=== PATIENT | female | born 1980 | race Two or more races ===

== ENCOUNTER → 2024-11-26 | Outpatient (CLI) | payer OTHER | END | disposition home or self-care (01) | LOC: LAB 12:38 | DX: N39.0 Urinary tract infection, site not specified (principal) | CPT/HCPCS: 87086; 87088; 87186 ==

== ENCOUNTER 2025-01-21 12:44 | Emergency (ER) | payer BC, OTHER ==
[~2025-01-21] VITALS: Ht 162.6 cm; Wt 70.1 kg
--- NOTE | 2025-01-21 13:25 | ED.PDOC ---
History of Present Illness HPI Comments 44 y/o F presents with c/c of hypertension. Patient endorses on her blood pressure being elevated all day, today, and having sudden, unprovoked, and atraumatic onset of headache and dizziness for the past 2x hours. Last at-home blood pressure in the 170's/100's prior to ED arrival. She comments on no previous history of hypertension and is being evaluated, currently, for condition by her PCP, with an expected cardiology consultation appointment on 02/01/25. Denies any further pertinent events or history alongside any additional acute symptoms. Chief Complaint: High Blood Pressure Time Seen by MD: 13:10 Reviewed Notes: Nurses Notes, Medications, Allergies Allergies: Coded Allergies: No Known Drug Allergy (Verified Allergy, Unknown, 01/21/25) Information Source: Patient Mode of Arrival: Ambulatory Severity: Moderate Timing: Hours Duration: Since onset Prehospital treatment: None Past Medical History PAST MEDICAL HISTORY: Denies Surgical History: Denies all surgeries HEAD CUSTODIAN History: No Pertinent HEAD CUSTODIAN History Family History Family History: Unknown Social History Smoker: Non-Smoker Alcohol: Denies ETOH Use Drugs: Denies Drug Use Lives In: Home All Other Systems: Reviewed and Negative (Comprehensive review of systems are negative unless stated in HPI) Physical Exam General Appearance: Moderate Distress HEENT: Normal ENT Inspection, Pharynx Normal, TMs Normal Neck: Full Range of Motion, Non-Tender, Normal, Normal Inspection Respiratory: Chest Non-Tender, Lungs Clear, No Accessory Muscle Use, No Respiratory Distress, Normal Breath Sounds Cardiovascular: No Edema, No JVD, No Murmur, No Gallop, Normal Peripheral Pulses, Regular Rate/Rhythm Breast Exam: Deferred Gastrointestinal: No Organomegaly, Non Tender, No Pulsatile Mass, Normal Bowel Sounds, Soft Genitalia: Deferred Pelvic: Deferred Rectal: Deferred Extremities: No calf tenderness, Normal capillary refill, Normal inspection, Normal range of motion, Non-tender, No pedal edema Musculoskeletal : Apperance: Normal Neurologic: Alert, fundraising manager II-XII nml as Tested, No Motor Deficits, Normal Affect, Normal Mood, No Sensory Deficits Cerebellar Function: Normal Reflexes: Normal Skin: Dry, Normal Color, Warm Peripheral Pulses: 3+ Radial (R), 3+ Radial (L) Lymphatic: No Adenopathy Was a procedure done? Was a procedure done?: No Differential Dx Considerations may include: HTN emergency, HTN essential, anxiety, electrolyte imbalance, dehydration, UTI, among others X-Ray, Labs, Meds, VS Vital Signs Date Time Temp Pulse Resp B/P (MAP) Pulse Ox O2 Delivery O2 Flow Rate FiO2 01/21/25 13:31 98.3 97 18 136/86 (103) 99 98.3 01/21/25 13:31 97 18 99 Room Air 01/21/25 13:30 136/86 01/21/25 13:01 88 01/21/25 12:55 98.4 118 17 166/89 98 98.4 Lab Test 01/21/25 13:57 01/21/25 13:33 Range/Units Urine Color Colorless Yellow Urine Clarity Clear Clear Urine pH 7.0 5.0-9.0 Urine Specific [place] 1.005 1.001-1.035 Urine Protein Negative Negative Urine Ketones Trace Negative Urine Blood 1+ H Negative /uL Urine Nitrite Negative Negative Urine Bilirubin Negative Negative Urine Urobilinogen Normal Negative mg/dL Urine Leukocyte Esterase Negative Negative /uL Urine RBC <1 0 - 4 /hpf Urine Microscopic WBC 1 0-5 /HPF Urine Squamous Epithelial Cells Few <5 /hpf Urine Bacteria Few H None Seen /hpf Urine Glucose Normal Normal mg/dL White Blood Count 8.5 4.4-10.8 10^3/uL Red Blood Count 4.70 4.0-5.20 10^6/uL Hemoglobin 13.2 12.2-16.2 g/dL Hematocrit 39.8 36.0-46.0 % Mean Corpuscular Volume 84.8 80.0-100.0 fL Mean Corpuscular Hemoglobin 28.2 28.0-32.0 pg Mean Corpuscular Hemoglobin Concent 33.3 32.0-36.0 g/dL Red Cell Distribution Width 16.7 H 11.8-14.3 % Platelet Count 385 140-450 10^3/uL Mean Platelet Volume 8.8 6.9-10.8 fL Neutrophils (%) (Auto) 66.2 37.0-80.0 % Lymphocytes (%) (Auto) 28.5 10.0-50.0 % Monocytes (%) (Auto) 4.4 0.0-12.0 % Eosinophils (%) (Auto) 0.3 0.0-7.0 % Basophils (%) (Auto) 0.6 0.0-2.0 % Neutrophils # (Auto) 5.6 1.6-8.6 10 ^3/uL Lymphocytes # (Auto) 2.4 0.4-5.4 10 ^3/uL Monocytes # (Auto) 0.4 0-1.3 10 ^3/uL Eosinophils # (Auto) 0 0-0.8 10 ^3/uL Basophils # (Auto) 0.1 0-0.2 10 ^3/uL Nucleated Red Blood Cells 0.0 % Sodium Level 141 136-145 mmol/L Potassium Level 3.6 3.5-5.1 mmol/L Chloride Level 105 98-107 mmol/L Carbon Dioxide Level 28 20-31 mmol/L Anion Gap 8 5-15 Blood Urea Nitrogen 5 L 9-23 mg/dL Creatinine 0.84 0.550-1.02 mg/dL Glomerular Filtration Rate Calc 87 >90 mL/min BUN/Creatinine Ratio 6.0 L 10.0-20.0 Serum Glucose 96 74-106 mg/dL Calcium Level 9.7 8.7-10.4 mg/dL Troponin I High Sensitivity < 3 L </=34 ng/L Current Medications Medications (Trade) Dose Ordered Sig/[place] Route Start Time Stop Time Status Last Admin Sodium Chloride 1,000 ml @ 1,000 mls/hr Q1H ONCE IV 01/21/25 13:15 01/21/25 14:14 DC 01/21/25 13:32 Patient alert. Came in because of high blood pressure. Vitals stable. Answering questions. Cardiac marker within normal limits. Urinalysis within normal limits. Blood pressure normalized. Establish intravenous access. Was given fluids. No leg swelling. Normal neurological exam. No acute process. Was told to exercise. Diet control. Explained to the patient. Was told to follow up with her primary care physician. Was told to come back if there is any problem. Time of 1ST Reevaluation: 13:40 Reevaluation 1ST: Unchanged Patient Education/Counseling: Treatment Family Education/Counseling: No Family Present SEPSIS Sepsis Screen Date sepsis recognized/suspect: Jan 21, 2025 Time Sepsis recognized/suspect: 5 Recent Procedure: No On Antibiotic Therapy: No Respiratory Rate >20: No Heart Rate >90: Yes Temp<36 C (96.8 F) or >38.3 C: No SBP <90 or MAP <65 mmHG: No New Acute Mental Status Change: No Is the patient on CPAP, BIPAP,: No Vital Signs Date Time Temp Pulse Resp B/P (MAP) Pulse Ox O2 Delivery O2 Flow Rate FiO2 01/21/25 13:31 98.3 97 18 136/86 (103) 99 98.3 01/21/25 13:31 97 18 99 Room Air 01/21/25 13:30 136/86 01/21/25 13:01 88 01/21/25 12:55 98.4 118 17 166/89 98 98.4 Laboratory Tests Test 01/21/25 13:33 White Blood Count 8.5 10^3/uL (4.4-10.8) Medications Medications Dose Ordered Sig/[place] Route Start Time Stop Time Status Last Admin Dose Admin Sodium Chloride 1,000 ml @ 1,000 mls/hr Q1H ONCE IV 01/21/25 13:15 01/21/25 14:14 DC 01/21/25 13:32 Departure 1 Departure Time of Disposition: 15:59 Impression: Primary Impression: HTN (hypertension) Qualified Codes: I10 - Essential (primary) hypertension Additional Impression: Autonomic disorder Disposition: 01 HOME / SELF CARE / HOMELESS Condition: Good Discharged With: Self Critical Care Note Critical Care Time?: No Stability Stability form required: No Heart Score Heart Score: Heart Score Response (Comments) Value History N/A 0 EKG N/A 0 Age N/A 0 Risk Factors N/A 0 Troponin N/A 0 Total 0 I personally scribed for ALEJANDRA CARBONE MD ([email or web address]) on 01/21/25 at 13:25. Electronically submitted by Didier Acosta ([email or web address]). ALEJANDRA CARBONE MD Jan 21, 2025 13:25
[2025-01-21] MEDS: SODIUM CHLORIDE 0.9% 1,000 ML IV ONE (13:32)
[2025-01-21 13:55] LABS: Chloride 105 mmol/L (98-107); Hematocrit 39.8 % (36.0-46.0); Hemoglobin 13.2 g/dL (12.2-16.2); Mean Corpuscular Hemoglobin 28.2 pg (28.0-32.0); Mean Corpuscular Volume 84.8 fL (80.0-100.0); Nucleated Red Blood Cells % 0.0 %; Potassium 3.6 mmol/L (3.5-5.1); Sodium 141 mmol/L (136-145)
[2025-01-21 13:56] LABS: Anion Gap 8 (5-15); Calcium 9.7 mg/dL (8.7-10.4); Carbon Dioxide 28 mmol/L (20-31)
[2025-01-21 14:01] LABS: BUN/Creatinine Ratio 6.0 (10.0-20.0); Glucose 96 mg/dL (74-106)
[2025-01-21 14:04] LABS: Blood Urea Nitrogen 5 mg/dL (9-23)
--- NOTE | 2025-01-21 14:31 | ECG ---
[facility] Test Date: 2025-01-21 Test Time: 13:01:24 Pat Name: AURY JUAREZ Department: Room: Gender: F [employer] Operator: PATRICIA : 1980 Requested By: ALEJANDRA CARBONE Order Number: [id number] Reading MD: Measurements Intervals [place] Rate: 88 P: 78 MN: 132 QRS: 99 QRSD: 98 T: 20 QT: 403 QTc: 488 Interpretive Statements Sinus rhythm Borderline right axis deviation Borderline repolarization abnormality Borderline prolonged QT interval Baseline wander in lead(s) I,II,aVR Please click the below link to view image of tracing.
[2025-01-21 15:02] LABS: Urine Protein, UAD Negative (Negative)
[2025-01-21 16:13] VITALS: BP 144/70; PULSE 78; RESP 18; TEMP 99.3; O2SAT 99
== END 2025-01-21 16:20 | disposition home or self-care (01) ==
LOC: ER 12:44
DX: I10 Essential (primary) hypertension (principal); G90.9 Disorder of the autonomic nervous system, unspecified
CPT/HCPCS: 36415; 80048; 81001; 84484; 85025; 93005; 96360; 99284; J7030